=== PATIENT | male | born 1930 | race Caucasian/White ===

== ENCOUNTER 2019-03-07 09:59 | Inpatient (IN) | payer MEDICARE, BC ==
[2019-03-07] MEDS ORDERED: Fentanyl 100 MCG/2 ML VIAL ONE (10:05)
[2019-03-07] MEDS ORDERED: Acetaminophen 650 MG Suppository ONE ×2 (10:05→10:07)
[2019-03-07] MEDS ORDERED: Acetaminophen 325 MG Suppository ONE (10:07)
[2019-03-07] MEDS ORDERED: cefTRIAXone\\ROCEPHIN 2 GM VIAL ONE (10:18)
--- NOTE | 2019-03-07 10:43 | RAD ---
EXAM: Single view of the chest HISTORY: Altered mental status COMPARISON: None FINDINGS: Single view of the chest shows a normal sized cardiomediastinal silhouette. There is no raquel dence of consolidation, mass, or pleural effusion. The bones are unremarkable. IMPRESSION: No evidence of acute cardiopulmonary disease
[2019-03-07 10:44] LABS: Blood, Urine Large (Negative); Nitrite Negative (Negative); Protein, Urine (Dipstick) 100 mg/dL (Neg-Trace)
[2019-03-07 10:45] LABS: Clarity Cloudy (Clear)
[2019-03-07 10:51] LABS: Bilirubin Unable to Interpret (Negative); Glucose, Urine (Dipstick) Negative (Negative); Leukocyte Moderate (Negative)
[2019-03-07 10:52] LABS: RBC/HPF Greater than 50 HPF (0-3)
[2019-03-07 10:54] LABS: Bacteria/HPF None Seen HPF (None Seen); Renal Epithelial 0-3 HPF (None Seen)
[2019-03-07 10:55] LABS: ALT (SGPT) 254 U/L (8-55); AST (SGOT) 234 U/L (5-34); Albumin 3.3 g/dL (3.4-4.8); Alkaline Phosphatase 269 U/L (40-110); Anion Gap 18 mmol/L (10-20); BUN (Urea Nitrogen) 27 mg/dL (8.4-25.7); Bilirubin, Total 4.4 mg/dL (0.2-1.2); Calc. Creatinine Clearance 0 mL/min (70-130); Calcium 8.2 mg/dL (7.8-10.44); Carbon Dioxide 16 mmol/L (23-31); Chloride 106 mmol/L (98-107); Estimated GFR-MDRD 30; Globulin 2.6 g/dL (2.4-3.5); Glucose 88 mg/dL (83-110); Potassium 3.3 mmol/L (3.5-5.1); Protein, Total 5.9 g/dL (5.8-8.1); Sodium 137 mmol/L (136-145)
[2019-03-07 11:02] LABS: #Basophils 0.1 thou/uL (0.0-0.2); #Lymphocytes 0.4 thou/uL (1.20-3.40); #Neutrophils 3.6 thou/uL (1.40-6.50); %Basophils 1.8 % (0.0-1.0); %Eosinophils 1.1 % (0.0-10.0); %Lymphocytes 10.3 % (21.0-51.0); %Monocytes 0.9 % (0.0-10.0); Band 10 % (5-11); Hemoglobin 13.6 g/dL (14.0-18.0); Large Platelets SLIGHT; Lymphocytes 9 % (21-51); MDiff Complete? YES; Mean Corpuscular HGB CONC 32.3 g/dL (32.0-36.0); Mean Corpuscular Hemoglobin 31.1 pg (27.0-31.0); Mean Corpuscular Volume 96.2 fL (78.0-98.0); Mean Platelet Volume 8.8 fL (7.4-10.4); Metamyelocyte 3 % (0-0); Monocytes 8 % (0-10); Neutrophil 70 % (42-75); Platelet Count 92 thou/uL (130-400); Platelet Morphology Comment Appears Decreased; Red Blood Cell (RBC) Count 4.37 mill/uL (4.70-6.10); Vacuoles MODERATE; White Blood Cell (WBC) Count 4.2 thou/uL (4.8-10.8)
[2019-03-07 11:10] LABS: Lipase 4167 U/L (8-78)
[2019-03-07 11:17] LABS: CKMB 2.4 ng/mL (0-6.6)
[2019-03-07] MEDS ORDERED: Lorazepam 2 MG/ML VIAL ONE (11:30)
[2019-03-07] MEDS ORDERED: metroNIDAZOLE 500 MG/100 ML BAG ONE (11:52)
[2019-03-07] MEDS ORDERED: Morphine 4 MG/ML VIAL ONE (11:59)
[2019-03-07] MEDS ORDERED: metroNIDAZOLE 500 MG in Premix Bag 1 BAG IVPB SCH ×2 (12:15→23:59)
[2019-03-07] MEDS ORDERED: Norepinephrine 8 MG/0.9% NS 250 ML ONE (12:44)
--- NOTE | 2019-03-07 12:44 | ULT ---
US Gallbladder RUQ: 03/07/2019 11:28 AM CLINICAL HISTORY: Abdominal pain. STUDY: Limited right upper quadrant ultrasound of abdomen. COMPARISON: None. FINDINGS: Liver: Size: Normal. Echogenicity: Normal. Contour: Smooth. Mass: None. Bile ducts: No intrahepatic or extrahepatic biliary dilatation. Common bile duct measures 7 mm. Gallbladder: Normal. Pancreas: Head, body, and tail appear normal. Right kidney: No pelvicalyceal dilatation. Right kidney measuring 10.4 cm in length. There is a 1.8 c m right renal cyst. IMPRESSION: Right renal cyst
--- NOTE | 2019-03-07 14:00 | CT ---
CT Abdomen Pelvis WO Con: 03/07/2019 10:13 AM HISTORY: Sepsis and nausea/vomiting COMPARISON: 01/21/2015 TECHNIQUE: Multiple contiguous axial images were obtained and a CT of the abdomen and pelvis without IV contrast . Coronal and sagittal reformats were performed. FINDINGS: This examination is limited for the evaluation of solid organs and vascular structures due to the lac k of intravenous contrast. Lower Chest: within normal limits. Abdomen: Liver: within normal limits. Bile Ducts: Normal caliber. Gallbladder: No calcified gallstones. Normal caliber wall. Pancreas: within normal limits. Spleen: within normal limits. Adrenals: within normal limits. Kidneys: within normal limits. Pelvis: Reproductive Organs: No pelvic masses. Ureters: within normal limits. Bladder: Decompressed by Cardenas catheter. Bowel: Normal caliber. Mesenteric Lymph Nodes: No enlarged mesenteric lymph nodes. Peritoneum: No ascites or free air, no fluid collection. Vessels: Atherosclerotic calcifications in the aorta Retroperitoneum: within normal limits. Abdominal Wall: within normal limits. Bones: Degenerative changes in the spine. IMPRESSION: No evidence of acute intraabdominal or pelvic abnormality.
--- NOTE | 2019-03-07 14:25 | RAD ---
EXAM: Single view of the chest HISTORY: Central line placement COMPARISON: 03/07/2019 10:14 AM FINDINGS: Single view of the chest shows a normal sized cardiomediastinal silhouette. There is a kike tral venous catheter with its tip in superior vena cava. No pneumothorax is seen. There is no evidence of consolidation, mass, or pleural effusion. The bones are unremarkable. IMPRESSION: Status post central line placement without evidence of complication.
--- NOTE | 2019-03-07 14:31 | CT ---
CT HEAD WITHOUT CONTRAST: INDICATIONS: Mental status change. COMPARISON: None. TECHNIQUE: Axial tomograms obtained without IV enhancement. FINDINGS: Ventricles have normal size and position. There are moderate chronic ischemic white matter changes. T here is no evidence of intracranial mass or hemorrhage. No evidence of acute cortical infarct. The si nuses and mastoids appear clear. IMPRESSION: Cortical atrophy and chronic ischemic white matter change. No acute intracranial process. POS: [facility]
[2019-03-07 14:43] LABS: Lactic Acid 5.4 mmol/L (0.5-2.2)
[2019-03-07 14:48] LABS: Troponin I 0.176 ng/mL (< 0.028)
[2019-03-07 15:37] LABS: Actual Bicarbonate (HCO3a) 14.8 mEq/L (22-28); Analyzer IN Cardio ER; CO2 Tension 32.9 mmHg (35.0-45.0); Calcium, Ionized 1.08 mmol/L (1.12-1.30); Carboxyhemoglobin (COHb) 0.3 gm% (0.0-3.0); Hemoglobin (Hb) 12.4 g/dL (14.0-18.0); O2 Tension (PaO2) 106.3 mmHg (> 60.0); Potassium - ABG Lab 2.92 mmol/L (3.70-5.30); Puncture Site RB; pH, Arterial 7.27 (7.35-7.45)
[2019-03-07] MEDS ORDERED: Ondansetron PF 4 MG/2 ML Vial IVP PRN (15:48)
[2019-03-07] MEDS ORDERED: Sodium Chloride 0.9% 1,000 ML IV SCH (15:48)
[2019-03-07] MEDS ORDERED: Ondansetron ODT 4 MG TAB SL PRN (15:48)
[2019-03-07] MEDS ORDERED: Midazolam HCl 2 mg/2 ml Vial ONE (15:48)
[2019-03-07] MEDS ORDERED: Vecuronium 10 MG VIAL ONE (15:50)
[2019-03-07] MEDS ORDERED: Vasopressin 40 UNIT, Admixture Fee 1 EACH in Sodium Chloride 0.9% 100 ML IV SCH (16:00)
[2019-03-07 16:23] LABS: Actual Bicarbonate (HCO3a) 15.4 mEq/L (22-28); Base Excess (BEa) -11.7 mEq/L (-2.0 to +3.0); Calcium, Ionized 1.06 mmol/L (1.12-1.30); Carboxyhemoglobin (COHb) 1.1 gm% (0.0-3.0); Hemoglobin (Hb) 11.6 g/dL (14.0-18.0); O2 Tension (PaO2) 69.7 mmHg (> 60.0); Potassium - ABG Lab 2.73 mmol/L (3.70-5.30); pH, Arterial 7.21 (7.35-7.45)
[2019-03-07 16:24] LABS: Puncture Site RB
[2019-03-07] MEDS ORDERED: Potassium Chloride 40 MEQ in Premix Bag 1 BAG IVPB SCH (16:30)
[2019-03-07] MEDS ORDERED: CCU Electrolyte Replacement 1 EACH FS ONE (17:06)
[2019-03-07] MEDS ORDERED: Vecuronium 10 MG VIAL IVP PRN (17:06)
[2019-03-07] MEDS ORDERED: Potassium Phosphate 12 MMOL in Sodium Chloride 0.9% 250 ML 250 ML IV PRN (17:10)
[2019-03-07] MEDS ORDERED: Magnesium Oxide 400 MG TAB PO PRN ×2 (17:10)
[2019-03-07] MEDS ORDERED: Magnesium 2 GM/50 ML 2 GM in Premix Bag 1 BAG IVPB PRN (17:10)
[2019-03-07] MEDS ORDERED: DISCONTINUE PREVIOUS NARCOTIC PAIN MEDICATIONS AND BENZODIAZEPINES FS SCH (17:10)
[2019-03-07] MEDS ORDERED: CCU ELECTROLYTE REPLACEMENT PROTOCOL FS PRN (17:10)
[2019-03-07] MEDS ORDERED: Potassium Chloride 40 MEQ in Sodium Chloride 0.9% 250 ML 250 ML IVPB PRN (17:10)
[2019-03-07] MEDS ORDERED: Potassium Chloride 20 MEQ TAB PO PRN (17:10)
[2019-03-07] MEDS ORDERED: Potassium Phosphate 15 MMOL in Sodium Chloride 0.9% 250 ML 250 ML IV PRN (17:10)
[2019-03-07] MEDS ORDERED: Propofol BOLUS 1,000 MG/100 ML VIAL IV PRN (17:10)
[2019-03-07] MEDS ORDERED: PHOS-NAK 1 PKT PACK PO PRN ×2 (17:10)
[2019-03-07] MEDS ORDERED: Propofol 1,000 MG/100 ML VIAL IV PRN (17:10)
[2019-03-07] MEDS ORDERED: Morphine 2 MG/ML SYRINGE SLOW IVP PRN (17:10)
[2019-03-07] MEDS ORDERED: Fentanyl BOLUS 250 ML IVPB PRN (17:10)
[2019-03-07] MEDS ORDERED: Potassium Phosphate 9 MMOL in Sodium Chloride 0.9% 100 ML IVPB PRN (17:10)
[2019-03-07] MEDS ORDERED: Potassium Chloride 40 MEQ in Premix Bag 1 BAG IVPB PRN (17:10)
[2019-03-07] MEDS ORDERED: Ventilator Sedation Protocol 1 EACH FS SCH (17:15)
[2019-03-07] MEDS: Sodium Bicarbonate 140 MEQ in Dextrose 5% in Water 1,000 ML IV SCH (17:34)
[2019-03-07 17:41] LABS: Troponin I 0.267 ng/mL (< 0.028)
[2019-03-07] MEDS: fentaNYL Citrate/PF 2,000 MCG in Sodium Chloride 0.9% 60 ML IV SCH (17:43)
[2019-03-07] MEDS: Hydrocortisone Sod Succ/PF 100 mg/2 ml Vial IVP SCH (19:17)
[2019-03-07] MEDS: metroNIDAZOLE 500 MG in Premix Bag 1 BAG IVPB SCH (19:18)
[2019-03-07] MEDS ORDERED: Cefepime 2 GM in Sodium Chloride 0.9% 100 ML IVPB SCH ×2 (21:00)
[2019-03-07] MEDS: Norepinephrine 8 MG/0.9% NS 250 ML IVPB SCH (21:12)
[2019-03-07 21:28] LABS: Actual Bicarbonate (HCO3a) 14.1 mEq/L (22-28); Base Excess (BEa) -12.6 mEq/L (-2.0 to +3.0); CO2 Tension 34.9 mmHg (35.0-45.0); Calcium, Ionized 0.98 mmol/L (1.12-1.30); Carboxyhemoglobin (COHb) 1.2 gm% (0.0-3.0); Hemoglobin (Hb) 12.1 g/dL (14.0-18.0); O2 Tension (PaO2) 63.4 mmHg (> 60.0); Potassium - ABG Lab 2.87 mmol/L (3.70-5.30)
--- NOTE | 2019-03-07 21:58 | HP ---
CHIEF COMPLAINT: Abdominal pain and vomiting. HISTORY OF PRESENT ILLNESS: This patient is an 88-year-old male, who presented to the emergency department. The patient does not have hearing aids or glasses. Has a very difficult time communicating at the moment. According to the patient's daughter, she was in good health yesterday, apparently has some chronic recurring abdominal pain. He was well enough to change the tire on her car yesterday morning. Subsequently, he reported some abdominal pain, which is not uncommon for him. He took a nap and did not get any better, took his usual medications today. Apparently, he was significantly worse, had some vomiting and was apparently altered in some way per EMS. The patient had significant vomiting on the arrival and was altered at that time. REVIEW OF SYSTEMS: Not obtainable given the patient's current status and difficulty communicating. PAST MEDICAL HISTORY: Gastroesophageal reflux, duodenal ulcers, hypertension, and history of a toxic multinodular goiter. SURGICAL HISTORY: Cataractectomy and colonoscopy. FAMILY HISTORY: Not currently obtainable. SOCIAL HISTORY: Has a history of smoking, but nothing recent. No evidence of alcohol or drugs. He is . His and daughter indicate that they believe he would want aggressive treatment at this juncture, so he will be made full code and his is his surrogate decision maker. ALLERGIES: NONE. CURRENT MEDICATIONS: 1. Prilosec 40 mg daily. 2. Tylenol No. 3 q.6 hours p.r.n. 3. Amlodipine 5 mg daily. 4. Losartan 50 mg daily. PHYSICAL EXAMINATION: VITAL SIGNS: Initially, rectal temperature was 104, respirations 32, pulse 158, BP is 129/97, O2 saturation was 99% on a non-rebreather. Ultimately, blood pressure did decline as low as 73/50, requiring pressors in the emergency department. GENERAL APPEARANCE: Currently, the patient is awake. He is not terribly interactive. He did at one point say that he can hear us, but he cannot understand us, but otherwise was not really following commands or verbally interactive. HEART: Tachycardic without murmurs. LUNGS: Clear bilaterally with no wheezes or rales. ABDOMEN: Tender to palpation diffusely, possibly slightly more on the right upper quadrant with some mild voluntary guarding. No masses, rebound, or hepatosplenomegaly is noted. EXTREMITIES: No cyanosis, clubbing, or edema. HEENT: Pupils are reactive. He has no acute lesions. NEUROLOGIC: Again, the patient is not interactive. He does move his extremities modestly spontaneously. LABORATORY DATA: White count is 4.2, hemoglobin 13.6, platelets 92. Sodium 137, potassium 3.3, chloride 106, CO2 of 16, BUN 27, creatinine is 2.13, glucose 88, lactic acid 9.1, calcium 8.2, total bilirubin 4.4, AST 234, ALT 254, alkaline phosphatase 269. Troponin 0.052. Albumin 3.3. Urinalysis is cloudy, orange in color, positive protein, ketones are present, large blood, 2+ protein, elevated urobilinogen, moderate leukocyte esterase with greater than 50 red cells, 7 to 10 white cells. Flu screen is negative. CT abdomen and pelvis negative for acute findings. CT brain, chronic degenerative changes. Chest x-ray negative. Abdominal ultrasound shows a benign renal cyst. IMPRESSION AND PLAN: 1. Acute hypoxic respiratory failure. ABG was obtained prior to transport from the ER, reviewed, is definitely acidotic with pH 7.2. Dr. Roper and I spoke with the patient's and daughter and they are amenable at this point to intubation. 2. Acute septic shock. Source is suspected to be possible cholangitis, although imaging has been negative. All other workup so far has been negative as well. He does have elevated liver enzymes with a cholestatic picture, covering with cefepime, vancomycin, and Flagyl. Pressors as needed. 3. Possible cholangitis, on antibiotic coverage and consult GI for possible ERCP once he is appropriately stable. 4. History of hypertension, obviously holding off on any medications now. 5. Hypokalemia. We will need to closely monitor potassium levels after intubation and his acidosis is resolved. 6. Acute on chronic kidney injury. The patient appears to have a baseline GFR around 40, he is now at 30, clearly related to the septic shock and likely some acute tubular necrosis. We will continue to monitor after fluid hydration. 7. Elevated troponins, likely due to [id number] myocardial infarction type 2 from demand ischemia related to the septic shock. 8. Possible pancreatitis due to the cholestatic picture, possible ascending cholangitis versus a stone or obstruction, which may have already passed and not visible on imaging again. GI consulted. Job ID: [id number]
[2019-03-07] MEDS ORDERED: Vancomycin HCl 1 GM in Premix Bag 1 BAG IVPB SCH (22:00)
[2019-03-07] MEDS: Albumin 25% 25 GM/100 ML BOT IVPB SCH (22:41)
--- NOTE | 2019-03-07 23:40 | CON ---
DATE OF CONSULTATION: 03/07/2019 This is a 1-hour critical care time not including time spent performing 2 procedures, see separate operative note. REASON FOR CONSULTATION: Septic shock. HISTORY OF PRESENT ILLNESS: This patient is an 88-year-old male who apparently was doing well up until yesterday. He has had some chronic abdominal pain, but today it worsens significantly. He presented to the ER with altered mental status and really could not give much in the way of history. What I have obtained from talking with the family and by reading the emergency provider notes, when he was in the ER, he was noted to be hypotensive and had a fever up to 104.7. His bilirubin was very rigid to exam. He underwent a CT of the abdomen and pelvis, which was nondiagnostic. He had a central line placed for the purpose of giving vasopressors. I was called by the emergency room physician when the patient was not responding with vasopressors and I asked if the patient was acidotic. At that time, they had not done a blood gas. By the time the patient got to the ICU a short time later, the blood gas had been drawn, the pH was about 7.27, pCO2 of 37. PAST MEDICAL HISTORY: 1. 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 2. Hypertension. 3. Gastroesophageal reflux. PAST SURGICAL HISTORY: 1. Status post colonoscopy. 2. Diverticulitis post surgery. 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 Smoked 20 years, 1 to 2 packs a day, quit 40 years ago. Does not use IV drugs. Has not had any type of blood transfusion in the past. ALLERGIES: NONE. MEDICATIONS: Prior to admission; 1. Prilosec. 2. Some type of Codeine preparation. 3. Amlodipine. 4. Losartan. REVIEW OF SYSTEMS: Cannot be obtained. PHYSICAL EXAMINATION: VITAL SIGNS: Temperature was last measured 100.5, pulse 113, blood pressure now 130/55, on Levophed drip, and O2 saturation 95% on mechanical ventilation. The patient appears toxic. HEENT: Unremarkable. NECK: No adenopathy or JVD. LUNGS: Clear anteriorly. CARDIOVASCULAR: S1 and S2, tachycardic. ABDOMEN: Tender to superficial palpation particularly in the right upper quadrant. EXTREMITIES: No clubbing, cyanosis, or edema. LABORATORY DATA: White blood cell count 4.2, hematocrit 42.0, and platelet count 92, with 70% neutrophils, 10% bands. ABG; pH of 7.21, pCO2 of 39, pO2 of 69, that is on SIMV, rate 20, tidal volume of 500, PEEP 5, pressure support 10, FiO2 40%, that is after intubation. Sodium 137, potassium 3.3, chloride 106, CO2 of 16, BUN 27, and creatinine 2.1. Lactate was initially 9.1, now 5.4, AST 234, ALT 254, alkaline phosphatase 269, total bilirubin 4.4, troponin 0.76, lipase 4167, albumin 3.3. IMAGING STUDIES: A chest x-ray obtained in the emergency room demonstrates clear lung barry. Tortuous aorta. Right IJ line noted in good position. Abdominal ultrasound showed a normal gallbladder. Common bile duct measures 7 mm. ASSESSMENT: 1. This patient is presenting with septic shock from presumed abdominal source based on exam. Imaging studies are negative. The laboratory data suggest pancreatitis and/or ascending cholangitis. He has significant transaminitis. Also in the differential, would be ischemic bowel. 2. Severe metabolic acidosis. 3. Acute respiratory failure secondary to the acidosis. PLAN: 1. The patient has been placed on vasopressors for the purpose of improving his blood pressure. A CVP is about 14, so he has been adequately fluid resuscitated. I have placed an arterial line so that we can monitor his blood pressure aggressively as well as put him on a machine to monitor his cardiac output. 2. GI has been consulted as the patient may need ERCP. 3. Empiric antibiotics. 4. GI prophylaxis with Pepcid. 5. Start bicarbonate drip. Job ID: [id number]
[2019-03-08] MEDS: metroNIDAZOLE 500 MG in Premix Bag 1 BAG IVPB SCH ×5 (00:38→23:43)
[2019-03-08] MEDS: Hydrocortisone Sod Succ/PF 100 mg/2 ml Vial IVP SCH ×5 (00:38→23:43)
[2019-03-08] MEDS: Norepinephrine 8 MG/0.9% NS 250 ML IVPB SCH ×4 (00:41→20:19)
[2019-03-08] MEDS: Lorazepam 2 MG/ML VIAL SLOW IVP PRN ×5 (01:09→16:39)
[2019-03-08] MEDS: Sodium Bicarbonate 140 MEQ in Dextrose 5% in Water 1,000 ML IV SCH ×3 (01:25→19:53)
--- NOTE | 2019-03-08 01:47 | CON ---
DATE OF CONSULTATION: SERVICE: Renal Medicine. HISTORY OF PRESENT ILLNESS: Mr. Jackson is an 88-year-old white male, who was admitted for abdominal pain. Initial imaging-CT of the abdomen and pelvis not showed any acute abnormality. Kidneys were said to be normal. The patient has been evaluated by the GI and the feeling is that he may have ischemic bowel. His blood pressure has been labile. He has been up and down and is currently on pressor support. He is currently undergoing optimization of his hemodynamics. We were consulted for the acute kidney injury on top of his chronic renal failure. REVIEW OF SYSTEMS: Chronic intermittent abdominal pain. No nausea. No vomiting. Appetite decreased. Energy level has decreased. No headache. No chest pain. No shortness of breath. No syncopal episode. No productive cough. No gross hematuria. No dysuria. No urinary frequency. No hematochezia. No melena. HOME MEDICATIONS: Included the following, 1. Omeprazole 20 mg daily. 2. Losartan 50 mg daily. 3. Amlodipine 5 mg once a day. 4. Tylenol with Codeine. CURRENT HOSPITAL MEDICATIONS: Include, 1. Vasopressin drip. 2. Thiamine 200 mg q.12 hours p.r.n. 3. Potassium currently on isotonic bicarbonate. 4. Cefepime 2 g IV daily. PAST MEDICAL HISTORY: 1. 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 2. Longstanding history of hypertension. PAST SURGICAL HISTORY: Includes status post colonoscopy with findings of diverticulitis. SOCIAL HISTORY: The patient lives in [place]. , two children. Smoked for 20 years 1 to 2 packs a day, quit 40 years ago. Education, high school. No drug abuse. Denies any blood transfusion. Active lifestyle. 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 FAMILY HISTORY: No family history of ESRD. ALLERGIES: NONE. TRAUMA: None. IMMUNIZATIONS: Up-to-date. HOSPITALIZATIONS: Please see past medical history. PHYSICAL EXAMINATION: VITAL SIGNS: Blood pressure is 150/70, heart rate 70. GENERAL: The patient is sedated, intubated, on ventilator support. SKIN: Adequate turgor. HEENT: He has pinkish conjunctivae. Anicteric sclerae. No neck mass. No carotid bruits. No JVD. CHEST: No deformities. LUNGS: Clear breath sounds. HEART: Normal sinus rhythm. No murmur. No gallops. No rubs. ABDOMEN: Globular, soft, nontender. No masses. EXTREMITIES: No edema. No deformities. LABORATORY DATA: Laboratories of March 07, 2019, sodium 137, potassium 3.3, chloride 106, carbon dioxide 16, BUN 27, creatinine 2.13, glucose 88, AST 234, ALT 254, alkaline phosphatase 269. Lactic acid 5.4. Troponin I 0.267. Lipase 4167. ASSESSMENT AND PLAN: 1. Elevated lipase-possibility of acute pancreatitis remains. Imaging was essentially negative. GI has been consulted. I discussed the case with Dr. Eldridge and he feels that better differential will be ischemic bowel with this patient. For the moment, management is supportive. Continue to optimize hemodynamics. 2. Acute kidney injury. This is most likely a superimposed prerenal azotemia. Aggressive IV hydration is being given with this patient. In addition, I have decided to start him on albumin infusion 25 g IV q.6. There is no indication for any dialytic intervention. 3. Case discussed at length with the daughter and the . His overall prognosis remains guarded. Job ID: [id number]
[2019-03-08 02:51] LABS: ALV-art Gradient 178.175 (0-20); Puncture Site ALINE; pH, Arterial 7.22 (7.35-7.45)
[2019-03-08 03:19] LABS: Creatinine, Urine 257.98 mg/dL (63-166)
[2019-03-08] MEDS: Albumin 25% 25 GM/100 ML BOT IVPB SCH ×4 (03:34→20:31)
[2019-03-08 04:40] LABS: Band 25 % (5-11); Hemoglobin 11.2 g/dL (14.0-18.0); Lymphocytes 3 % (21-51); MDiff Complete? YES; Mean Corpuscular HGB CONC 32.4 g/dL (32.0-36.0); Mean Corpuscular Hemoglobin 30.9 pg (27.0-31.0); Mean Corpuscular Volume 95.2 fL (78.0-98.0); Mean Platelet Volume 11.3 fL (7.4-10.4); Metamyelocyte 9 % (0-0); Monocytes 1 % (0-10); Myelocyte 1 % (0-0); Neutrophil 61 % (42-75); Platelet Count 56 thou/uL (130-400); Platelet Morphology Comment Appears Decreased; RBC Distribution Width 12.4 % (11.5-14.5); Red Blood Cell (RBC) Count 3.63 mill/uL (4.70-6.10); White Blood Cell (WBC) Count 19.2 thou/uL (4.8-10.8)
[2019-03-08 04:47] LABS: ALT (SGPT) 235 U/L (8-55); AST (SGOT) 271 U/L (5-34); Albumin 3.3 g/dL (3.4-4.8); Alkaline Phosphatase 116 U/L (40-110); Anion Gap 22 mmol/L (10-20); BUN (Urea Nitrogen) 38 mg/dL (8.4-25.7); Bilirubin, Total 4.2 mg/dL (0.2-1.2); Calc. Creatinine Clearance 18 mL/min (70-130); Calcium 6.7 mg/dL (7.8-10.44); Carbon Dioxide 14 mmol/L (23-31); Chloride 108 mmol/L (98-107); Estimated GFR-MDRD 18; Globulin 1.9 g/dL (2.4-3.5); Glucose 173 mg/dL (83-110); Phosphorus 5.1 mg/dL (2.3-4.7); Potassium 3.6 mmol/L (3.5-5.1); Protein, Total 5.2 g/dL (5.8-8.1); Sodium 140 mmol/L (136-145)
[2019-03-08 05:18] VITALS: BMI 26.6
[2019-03-08 07:32] LABS: Actual Bicarbonate (HCO3a) 13.2 mEq/L (22-28); Base Excess (BEa) -12.5 mEq/L (-2.0 to +3.0); CO2 Tension 29.9 mmHg (35.0-45.0); Carboxyhemoglobin (COHb) 0.2 gm% (0.0-3.0); Hemoglobin (Hb) 10.9 g/dL (14.0-18.0); O2 Tension (PaO2) 81.7 mmHg (> 60.0); pH, Arterial 7.26 (7.35-7.45)
[2019-03-08 07:33] LABS: ALV-art Gradient 166.125 (0-20); Analyzer IN Cardio OR; Calcium, Ionized 0.91 mmol/L (1.12-1.30); Potassium - ABG Lab 3.39 mmol/L (3.70-5.30); Puncture Site ALINE
--- NOTE | 2019-03-08 08:22 | PRG ---
DATE OF SERVICE: 03/08/2019 This is 35 minutes critical care time. SUBJECTIVE: The patient remains intubated on mechanical ventilation. He is heavily sedated and cannot follow commands. OBJECTIVE: VITAL SIGNS: His temperature 99.1 with a T-max of 99.1, pulse 104, blood pressure 105/58 via arterial line, currently receiving a Levophed drip at 25 mcg/minute and a vasopressin drip at 0.04 units/hour. His total intake has been 3247, output 328, all that just about gastric drainage. HEENT: Unremarkable, except for the endotracheal tube and orogastric tube in place. NECK: No adenopathy or JVD. LUNGS: Clear anteriorly. CARDIOVASCULAR: S1, S2. Regular. ABDOMEN: Soft. No tenderness to deep palpation. EXTREMITIES: No clubbing or cyanosis. He has mottled feet. LABORATORY DATA: Sodium 140, potassium 3.6, chloride 108, CO2 of 14, BUN 38, creatinine 3.3, glucose 173, calcium 6.7, AST 271, ALT 235, total bilirubin 4.2, magnesium 1.7. PH of 7.26, pCO2 of 30, pO2 of 82, that is on SIMV rate 28, tidal volume 500, PEEP 5, pressure support 10, FiO2 40%. White blood cell count 19.2, hematocrit 34.5, and platelet count 56. Chest x-ray is fairly clear. ASSESSMENT: 1. Septic shock, most likely from ascending cholangitis. 2. Acute respiratory failure, requiring mechanical ventilation. 3. Acute oliguric renal failure. 4. Thrombocytopenia. 5. Transaminitis. PLAN: 1. This patient remains critically ill. He is not weanable from mechanical ventilation, vasopressors, or other support. I think he most likely will need acute dialysis in the upcoming days. We need to continue broad-spectrum IV antibiotics. Initial cultures have already grown out gram-negative rods, which should be consistent with a gastrointestinal source. The patient was seen by GI yesterday. The consult has not been posted on the chart. 2. The patient will continue on vitamin C, thiamine, and IV hydrocortisone. I will update the family when they arrive. 3. Hold Lovenox given the development of thrombocytopenia. Job ID: [id number]
[2019-03-08] MEDS: Pantoprazole 40 MG VIAL IVP SCH (08:24)
--- NOTE | 2019-03-08 08:37 | CON ---
DATE OF CONSULTATION: REASON FOR CONSULTATION: Abdominal pain, nausea, elevated serum lipase and transaminases. HISTORY OF PRESENT ILLNESS: Mr. Trev Jackson is an 88-year-old male, who was brought by the family to the ER this morning. The patient has been steadily getting worse. He was awake and alert in the ER, but he was hypotensive. He is on vasopressors. After arrival in the ICU, he became somewhat tachypneic and was seen by Dr. Vaibhav Roper. He has to be intubated and he is on the ventilator. He is under sedation. Most of the history was obtained talking to the patient's daughter and her mother. The patient does see Dr. Calvin Moreno, his primary care doctor. The patient is known to have hypertension from before. He has also history of diverticular disease and also stable chronic kidney disease. The patient was doing well until yesterday morning when he started having severe abdominal pain. The pain was over the upper abdomen and was severe as per the patient's . He has dry heaving, but no vomiting. He had no diarrhea. No hematochezia. No history of any fever or chills. No urinary symptoms. The patient was brought to the ER and was seen by Dr. Young. He was found to have elevated lipase of more than 4000. His transaminases were elevated. His abdominal sonogram shows no gallstones. The CBD is normal at 7 mm. He has had previous abdominal sonogram and abdominal CAT scan in 2015. In 2015, abdominal sonogram showed no gallstones. Again the CAT scan was basically unremarkable at the time in 2015. He had a CAT scan done today, which is a noncontrast study, which limits evaluation of vascular structures. CAT scan of the abdomen shows no pathology. The patient also found to have acidosis with lactic acid of 9 and he was hypotensive. He was given IV bolus and is on IV vasopressors. He was transferred to ICU. Subsequently he became restless and became tachypneic and was found to be intubated. Going over the medical history, he was hospitalized here in 2015 with abdominal pain. He has abdominal CAT scan, which revealed possibly an apple-core lesion in the sigmoid colon. He underwent a colonoscopy by Dr. Nathaniel Vargas in 2015 and was negative except for diffuse colonic diverticular disease. An upper endoscopy was negative. He was seen by Dr. Douglas Aguilar because of elevated BUN of 37 and creatinine was 1.62. It was felt that he has acute on chronic kidney disease. He was given IV fluids and BUN came to 27 from 37. However, his creatinine remained high at 1.63. He never saw Dr. Aguilar again before. He never admitted to see Dr. Aguilar as an outpatient subsequent to that discharge. No other relevant history. ALLERGIES: NONE. SOCIAL HISTORY: He is . He quit smoking many years ago. He drinks alcohol socially. PAST SURGICAL HISTORY: No surgeries. MEDICATION LIST: Include; 1. Lisinopril/hydrochlorothiazide. 2. Acetaminophen with codeine. FAMILY HISTORY: No family history of colon malignancy. No stroke. No heart disease. REVIEW OF SYSTEMS: Not able to obtain as he is on the ventilator. PHYSICAL EXAMINATION: GENERAL: He is on the ventilator, sedated. VITAL SIGNS: He is tachycardic with pulse rate of 110. Blood pressure with vasopressor and Levophed runs around 140 systolic to 150 systolic, diastolic runs around 90. HEENT: Conjunctivae clear. NECK: Supple. No adenitis or thyromegaly noted. CARDIOVASCULAR: First and second heart sounds heard. LUNGS: Clear to auscultation. ABDOMEN: Soft and nondistended. Abdomen is actually a very benign exam. Patient appears nontender. No organomegaly. No masses. EXTREMITIES: Reveal no edema. LABORATORY DATA: From today CBC; WBC 4200, hemoglobin 13.6, hematocrit 42, MCV 96.2, platelet count is 92,000. Differential count; polymorphs 70, bandemia 10%, lymphocytes 9. Chemistry panel shows normal lytes except for potassium 3.3. bicarb 16, lactic acid 9.7, came down to 5.4, BUN is 27, creatinine has gone over 2.13, calcium 8.2, bilirubin 4.4, AST 234, ALT 254, alkaline phosphatase 269, lipase is 4167. Troponin is high at 0.27. Abdominal sonogram shows a CBD of 7 mm. No dilation of bile ducts. No gallstones. Abdominal CAT scan noncontrast study shows no other pathology. However, the vascular structure is not difficult to evaluate. CLINICAL IMPRESSION: An 88-year-old male with; 1. Acute abdominal pain with some nausea. He has evidence of kidney injury with creatinine going up to 2.13. He is also not passing any urine and also hypotensive. He is on vasopressors with Levophed XR. 2. Acute pancreatitis. It is unclear he does not drink alcohol and they found gallstones. Normal LFTs most likely from pancreatitis with possibly compression of some bile duct from pancreatic edema. 3. His physical findings and lab data does not support diagnosis of cholangitis as he has had no gallstones and CBD is normal in caliber. 4. Acute on chronic injury, worsening creatinine to 2.13. 5. Decreasing urine output and needs evaluation. 6. Hypertension. RECOMMENDATIONS: 1. Nephrology consult. 2. Ventilator support. 3. If he does not have enough output, I did talk to Dr. Douglas Aguilar, who has seen the patient before. Dr. Aguilar will see the patient later on today. 4. Serial labs. Further recommendations depending upon the hospital course. There is a strong possibility that he could have some ischemic bowel disease, which could explain her decrease in urinary output, hypotension, etc. Job ID: [id number]
--- NOTE | 2019-03-08 08:44 | RAD ---
EXAM: Single view of the chest HISTORY: Pneumonia COMPARISON: 03/07/2019 FINDINGS: Single view of the chest shows a normal sized cardiomediastinal silhouette. An endotrachea l tube is seen with its tip between the clavicles. An NG tube is seen in the stomach. The central venous catheter is unchanged in position. Chronic interstitial lung markings are present. There is n o evidence of consolidation, mass, or pleural effusion. The bones are unremarkable. IMPRESSION: Appropriate position of lines and tubes
[2019-03-08] MEDS ORDERED: Enoxaparin Sodium 30 MG/0.3 ML SYRINGE SC SCH (09:00)
--- NOTE | 2019-03-08 09:22 | PRG ---
DATE OF SERVICE: 03/08/2019 SERVICE: Renal Medicine. SUBJECTIVE: Mr. Jackson remains intubated and sedated. No acute events last night. The patient was seen for his acute kidney injury on top of his chronic renal failure. He was hemodynamically unstable. Albumin infusion has been given and isotonic bicarbonate has been started and is on maintenance IV fluid. However, renal function continues to worsen. My feeling is that he may have developed an acute tubular necrosis. He also has elevated lipase suggesting he may have underlying pancreatitis. Case was discussed with Dr. Eldridge and he may also have an intestinal bowel ischemia. OBJECTIVE: VITAL SIGNS: Blood pressure is 96/66, heart rate is 106, respiratory rate 18, temperature 98.8. GENERAL: The patient is sedated intubated on ventilator support. SKIN: Adequate turgor. HEENT: He has pinkish conjunctivae. Anicteric sclerae. No neck mass. No carotid bruits. No JVD. CHEST: No deformities. LUNGS: Decreased breath sounds. HEART: Normal sinus rhythm. No murmur. No gallops. No rubs. ABDOMEN: Globular, soft, nontender. No masses. EXTREMITIES: No edema. No deformities. MEDICATIONS: Medications of March 08, 2019, was reviewed. LABORATORY DATA: Laboratories of March 08, 2019, white count 12.2, hemoglobin 11.2. Sodium 140, potassium 3.6, chloride 108, carbon dioxide 14, BUN 38, creatinine 3.31, phosphorus 5.1, AST 271, ALT 235. Albumin is 3.3. Chest x-ray, March 08, 2019, shows no evidence of consolidation, mass, or pleural effusion. No overt CHF. ASSESSMENT AND PLAN: 1. Acute kidney injury on top of his chronic renal failure. Initially, he felt this could simply be a superimposed hemodynamically-mediated dysfunction. He has been receiving albumin infusion as well as crystalloids-isotonic bicarbonate. No improvement with renal function. Urine output is also decreased. Consideration for the possibility of a superimposed acute tubular necrosis remains. Continue supportive care. Continue to optimize hemodynamics. We will extend albumin infusion to 25 g IV q.6 for another 4 doses. 2. Elevated lipase/possibility of pancreatitis remains. Although GI feels there may be a component of intestinal ischemia. 3. Hypotension, currently on pressor support. 4. Overall prognosis remains guarded with this patient. Job ID: [id number]
[2019-03-08] MEDS ORDERED: Vancomycin HCl 1 GM in Premix Bag 1 BAG IVPB SCH ×2 (10:00→10:15)
--- NOTE | 2019-03-08 11:09 | OP ---
DATE OF PROCEDURE: 03/07/2019 PROCEDURE PERFORMED: Endotracheal intubation. PREOPERATIVE DIAGNOSES: Metabolic acidosis, respiratory failure. POSTOPERATIVE DIAGNOSES: Metabolic acidosis, respiratory failure. ANESTHESIA: Versed 2 mg IV for conscious sedation. INDICATIONS FOR PROCEDURE: Informed consent was obtained from the patient's family verbally. The patient was intubated orally with a 7.5 endotracheal tube with GlideScope visualization on the first attempt without difficulty. Tube placement was confirmed by auscultation. Job ID: [id number]
--- NOTE | 2019-03-08 11:09 | OP ---
DATE OF PROCEDURE: 03/07/2019 PROCEDURE PERFORMED: Arterial line placement. PREOPERATIVE DIAGNOSIS: Need for continuous arterial blood pressure monitoring. POSTOPERATIVE DIAGNOSIS: Successful left radial arterial line placement. ANESTHESIA: None. DESCRIPTION OF PROCEDURE: I first tried the left femoral artery. It was easy to cannulate the vessel, but the wire could only be passed about 8 cm and I could not get the IV catheter to return arterial blood once the wire was removed. Therefore, that site was aborted and I used the left radial site. This is also very difficult due to the small caliber diameter of the vessel. Ultrasound was used to cannulate the vessel by the modified Seldinger technique. Arterial line was placed and arterial blood was returned. Job ID: [id number]
[2019-03-08] MEDS: fentaNYL Citrate/PF 2,000 MCG in Sodium Chloride 0.9% 60 ML IV SCH (12:34)
[2019-03-08 13:36] LABS: Base Excess (BEa) -7.5 mEq/L (-2.0 to +3.0); CO2 Tension 31.4 mmHg (35.0-45.0); Calcium, Ionized 0.87 mmol/L (1.12-1.30); Carboxyhemoglobin (COHb) 0.4 gm% (0.0-3.0); Hemoglobin (Hb) 10.9 g/dL (14.0-18.0); O2 Tension (PaO2) 61.6 mmHg (> 60.0); Potassium - ABG Lab 3.47 mmol/L (3.70-5.30); Puncture Site ALINE; pH, Arterial 7.35 (7.35-7.45)
[2019-03-08 14:17] LABS: ALT (SGPT) 289 U/L (8-55); AST (SGOT) 319 U/L (5-34); Albumin 3.2 g/dL (3.4-4.8); Alkaline Phosphatase 94 U/L (40-110); Bilirubin, Direct 3.2 mg/dL (0.1-0.3); Protein, Total 4.6 g/dL (5.8-8.1)
--- NOTE | 2019-03-08 14:27 | PRG ---
DATE OF SERVICE: 03/08/2019 SUBJECTIVE: Mr. Jackson remains intubated. He became more acidotic overnight. He is on a bicarb drip. He is post vasopressin 0.04 and Levophed at 25 mcg. He is not making any urine. OBJECTIVE: VITAL SIGNS: Temperature 99.1 presently, pulse 108 to 110, blood pressure 140/92, bladder temp 99.1. GENERAL: He is intubated, sedated, nonresponsive, mildly icteric. HEENT: Oropharynx, no lesions. NECK: Supple. ABDOMEN: Soft, slightly protuberant. It is not distended. No bowel sounds. No palpable hepatosplenomegaly. EXTREMITIES: No clubbing, cyanosis, or edema. LABORATORY DATA: White count today has gone from 4 to 19. Hemoglobin is 11.2 from 13.6, likely from hydration. Platelet count 56,000. PH was 7.26 at 06:40 this morning, 7.21 yesterday at 1600. BUN and creatinine 38 and 3.31 from 2.13. Electrolytes normal. Phosphorus 5.1, calcium 6.7. Bilirubin 4.2, yesterday was 4.4. AST and ALT 271, 235, 234, and 254 yesterday. Alkaline phosphatase 116, down from 269. Lipase was not checked today, it was 4167 yesterday. ASSESSMENT: 1. Pancreatitis, likely biliary in light of no stones and no dilated duct and cannot confirm that. He does have a history in the past of intermittent right upper quadrant pain per the patient's daughter, has not started any new medications recently in the outpatient setting, obviously could be septic from other source and or be having some mesenteric ischemia. However, he has stabilized and actually the pH the nurses check was 7.35. I suspect if he had a large amount of ischemic bowel he would just steadily decline. 2. Elevated liver enzymes, could be related to cholestasis from sepsis, picture does look like cholangitis except for the fact he has no gallstones nor dilated duct, but he has E. coli in the blood and his clinical course has been ascertained. The family again notes intermittent history of right upper quadrant pain at times after eating. 3. Sepsis. 4. Acute renal failure. RECOMMENDATIONS: The patient was in very good health before this, very active, changing tires in his car, taking care of his family and driving still and without any signs or symptoms of dementia. He is septic now. This could be from cholangitis. It could be from another abdominal catastrophe. It does not appear that he has flu or acute hepatitis. He has E. coli in his blood. Recommendations, I have offered the family an ERCP today for possible ascending cholangitis with that he may not tolerate sedation and it may worsen his pancreatitis. We also may not be able to get into the common bile duct due to the degree of ampulla, periampullary edema or duodenal edema. He has been sick for over 24 hours now here in the hospital. At this time, there is no clear evidence he has cholangitis based on his imaging studies, but the clinical story definitely sounds like that. Again, the family at this time decided they do not want to move on with more invasive procedures as they feel he would not have wanted heroic measures. They have agreed to have labs rechecked. If things are stabilized, they will reevaluate. The nurse is going to contact me if they change their mind. Job ID: [id number]
[2019-03-08] MEDS ORDERED: Cefepime 2 GM in Sodium Chloride 0.9% 100 ML IVPB SCH (21:00)
[2019-03-08] MEDS ORDERED: Magnesium 2 GM/50 ML 2 GM in Premix Bag 1 BAG IVPB SCH (22:00)
[2019-03-08] MEDS ORDERED: Digoxin 0.5 MG/2 ML AMP SLOW IVP SCH (22:00)
[2019-03-08] MEDS: Amiodarone 450 MG, Admixture Fee 1 EACH in Dextrose 5% in Water 250 ML IVPB SCH (22:17)
--- NOTE | 2019-03-08 22:21 | PDOC.HOSPP ---
- Subjective Encounter Date: 03/08/19 Encounter Time: 15:30 non-verbal - Objective Vital Signs & Weight: Vital Signs (12 hours) Temp Pulse Resp BP Pulse Ox 03/08/19 22:06 145 H 03/08/19 20:00 28 H 03/08/19 18:42 137 H 03/08/19 18:41 135 H 28 H 98 03/08/19 18:00 28 H 03/08/19 17:07 28 H 03/08/19 16:00 28 H 03/08/19 15:00 99.3 F 03/08/19 14:02 105 H 120/64 03/08/19 14:00 104 H 28 H 91 L 03/08/19 12:00 28 H 03/08/19 11:00 99.1 F Weight Admit Weight 186 lb Weight 186 lb 1.122 oz Most Recent Monitor Data Heart Rate from ECG 137 NIBP 102/66 NIBP BP-Mean 78 Respiration from ECG 16 SpO2 85 I&O: 03/07/19 03/08/19 03/09/19 06:59 06:59 06:59 Intake Total 3247.5 2478.1 Output Total 328 15 Balance 2919.5 2463.1 Result Diagrams: 03/09/19 04:50 03/09/19 04:50 Hospitalist ROS - Medication Medications: Active Medications Generic Name Dose Route Start Last Admin Trade Name Freq PRN Reason Stop Dose Admin Albumin Human 25 gm 03/08/19 21:00 03/08/19 20:31 Albumin 25% IVPB 03/09/19 15:01 25 gm Q6H [place] Administration Albuterol/Ipratropium 3 ml 03/07/19 19:00 03/08/19 18:41 Duoneb NEB 3 ml [id number] [place] Administration Digoxin 0.25 mg 03/08/19 22:00 03/08/19 22:06 Lanoxin SLOW IVP 03/08/19 23:59 0.25 mg NOW [place] Administration Hydrocortisone Sodium Succinate 50 mg 03/07/19 18:00 03/08/19 17:03 Solu-Cortef IVP 03/14/19 18:01 50 mg Q6HR [place] Administration Vasopressin 40 unit/ 102 mls @ 0 mls/hr 03/07/19 16:00 03/08/19 22:17 Miscellaneous Medication 1 IV 102 mls each/ Sodium Chloride INF [place] Administration Protocol As Directed Metronidazole 500 mg/ Device 100 mls @ 100 mls/hr 03/07/19 18:00 03/08/19 17: 06 IVPB 100 mls Q6HR [place] Administration Ascorbic Acid 1,500 mg/ Sodium 53 mls @ 100 mls/hr 03/07/19 18:00 03/08/19 17 :05 Chloride IVPB 03/11/19 18:01 53 mls Q6HR [place] Administration Thiamine HCl 200 mg/ Sodium 52 mls @ 100 mls/hr 03/07/19 21:00 03/08/19 20:19 Chloride IVPB 03/11/19 21:01 52 mls Q12HR [place] Administration Magnesium Sulfate 1 gm/ Sodium 102 mls @ 102 mls/hr 03/07/19 17:10 03/08/19 08:24 Chloride IV 102 mls PRN PRN Administration MAG LEVEL 1.4 - 2.0 Fentanyl Citrate 2,000 mcg/ 100 mls @ 0 mls/hr 03/07/19 17:10 03/08/19 12:34 Sodium Chloride IV 04/06/19 17:10 100 mls INF [place] Administration Protocol Per Protocol Cefepime HCl 2 gm/ Sodium 100 mls @ 200 mls/hr 03/08/19 21:00 03/08/19 20:19 Chloride IVPB 100 mls 2100 [place] Administration Sodium Bicarbonate 140 meq/ 1,140 mls @ 100 mls/hr 03/08/19 07:28 03/08/19 19 :53 Dextrose/Water IV 1,140 mls .[id number] [place] Administration Norepinephrine Bitartrate 250 mls @ 0 mls/hr 03/08/19 14:36 03/08/19 20:19 Levophed IVPB 250 mls INF [place] Administration Protocol Titrate Amiodarone HCl 450 mg/ 259 mls @ 0 mls/hr 03/08/19 22:00 03/08/19 22:17 Miscellaneous Medication 1 IVPB 259 mls each/ Dextrose/Water INF [place] Administration Protocol As Directed Magnesium Sulfate 2 gm/ Device 50 mls @ 50 mls/hr 03/08/19 22:00 03/08/19 22: 18 IVPB 03/08/19 23:59 50 mls NOW [place] Administration Lorazepam 2 mg 03/07/19 17:10 03/08/19 16:39 Ativan SLOW IVP 04/06/19 17:10 2 mg Q1H PRN Administration Breakthrough agitation Pantoprazole Sodium 40 mg 03/08/19 09:00 03/08/19 08:24 Protonix IVP 40 mg DAILY [place] Administration - Exam General Appearance: NAD, awake alert Heart: RRR, no murmur, no gallops, no rubs, normal peripheral pulses Respiratory: CTAB, no wheezes, no rales, no ronchi, normal chest expansion, no tachypnea, normal percussion Gastrointestinal: soft Gastrointestinal - other findings: Slight distention. Bowel sounds absent. Musculoskeletal: normal tone, normal strength, no muscle wasting Psychiatric: normal affect, normal behavior, A&O x 3 Hosp A/P (1) Septic shock Code(s): A41.9 - SEPSIS, UNSPECIFIED ORGANISM; R65.21 - SEVERE SEPSIS WITH SEPTIC SHOCK Status: Acute (2) Cholestasis Code(s): K83.1 - OBSTRUCTION OF BILE DUCT Status: Acute (3) Pancreatitis Code(s): K85.90 - ACUTE PANCREATITIS WITHOUT NECROSIS OR INFECTION, UNSP Status: Acute (4) Acute renal failure Status: Acute - Plan Continuing broad spectrum abx. E. coli bacteremia likely from GI source. Continuing on pressors and vent support. Long discussions with the patient's family. They have decided to make him DNR today. Will continue other supportive measures and see how his kidneys respond.
[2019-03-09] MEDS: Norepinephrine 8 MG/0.9% NS 250 ML IVPB SCH ×2 (01:05→06:54)
[2019-03-09] MEDS: Albumin 25% 25 GM/100 ML BOT IVPB SCH ×3 (02:58→15:52)
[2019-03-09 05:29] LABS: ALT (SGPT) 248 U/L (8-55); AST (SGOT) 233 U/L (5-34); Albumin 3.7 g/dL (3.4-4.8); Alkaline Phosphatase 92 U/L (40-110); Anion Gap 21 mmol/L (10-20); BUN (Urea Nitrogen) 51 mg/dL (8.4-25.7); Bilirubin, Total 4.2 mg/dL (0.2-1.2); Calc. Creatinine Clearance 14 mL/min (70-130); Calcium 6.3 mg/dL (7.8-10.44); Carbon Dioxide 19 mmol/L (23-31); Chloride 101 mmol/L (98-107); Estimated GFR-MDRD 13; Globulin 1.6 g/dL (2.4-3.5); Glucose 184 mg/dL (83-110); Magnesium 2.3 mg/dL (1.6-2.6); Potassium 3.6 mmol/L (3.5-5.1); Protein, Total 5.3 g/dL (5.8-8.1); Sodium 137 mmol/L (136-145)
[2019-03-09 05:30] LABS: Lipase 44 U/L (8-78); Phosphorus 4.2 mg/dL (2.3-4.7)
[2019-03-09 05:44] LABS: Band 27 % (5-11); Hemoglobin 9.9 g/dL (14.0-18.0); Hypochromia SLIGHT = 6-15 cells (100X) (0-5/hpf); Lymphocytes 3 % (21-51); MDiff Complete? YES; Mean Corpuscular HGB CONC 33.4 g/dL (32.0-36.0); Mean Corpuscular Hemoglobin 31.2 pg (27.0-31.0); Mean Corpuscular Volume 93.3 fL (78.0-98.0); Mean Platelet Volume 12.3 fL (7.4-10.4); Metamyelocyte 4 % (0-0); Monocytes 12 % (0-10); Neutrophil 54 % (42-75); Platelet Count 31 thou/uL (130-400); Platelet Morphology Comment Appears Decreased; RBC Distribution Width 12.4 % (11.5-14.5); Red Blood Cell (RBC) Count 3.17 mill/uL (4.70-6.10); White Blood Cell (WBC) Count 22.4 thou/uL (4.8-10.8)
[2019-03-09] MEDS: Amiodarone 450 MG, Admixture Fee 1 EACH in Dextrose 5% in Water 250 ML IVPB SCH (05:44)
[2019-03-09] MEDS: Sodium Bicarbonate 140 MEQ in Dextrose 5% in Water 1,000 ML IV SCH (05:44)
[2019-03-09] MEDS: Hydrocortisone Sod Succ/PF 100 mg/2 ml Vial IVP SCH (05:45)
[2019-03-09] MEDS: metroNIDAZOLE 500 MG in Premix Bag 1 BAG IVPB SCH ×2 (05:45→11:14)
[2019-03-09 06:49] LABS: Actual Bicarbonate (HCO3a) 17.7 mEq/L (22-28); Base Excess (BEa) -6.3 mEq/L (-2.0 to +3.0); CO2 Tension 29.9 mmHg (35.0-45.0); Calcium, Ionized 0.85 mmol/L (1.12-1.30); Carboxyhemoglobin (COHb) 0.6 gm% (0.0-3.0); Hemoglobin (Hb) 10.1 g/dL (14.0-18.0); O2 Tension (PaO2) 69.5 mmHg (> 60.0); Potassium - ABG Lab 3.47 mmol/L (3.70-5.30); pH, Arterial 7.39 (7.35-7.45)
[2019-03-09 06:53] LABS: ALV-art Gradient 249.625 (0-20); Puncture Site ALINE
[2019-03-09] MEDS ORDERED: Amiodarone 450 MG in Dextrose 5% in Water 250 ML IVPB SCH (08:00)
[2019-03-09] MEDS ORDERED: Hydrocortisone Sod Succ/PF 100 mg/2 ml Vial IVP SCH (08:20)
[2019-03-09] MEDS ORDERED: Sodium Bicarbonate 140 MEQ in Dextrose 5% in Water 1,000 ML IV SCH (08:20)
--- NOTE | 2019-03-09 08:52 | PRG ---
DATE OF SERVICE: 03/09/2019 35 minutes critical care time. SUBJECTIVE: The patient remains intubated, on mechanical ventilation. There have been no acute changes overnight. OBJECTIVE: VITAL SIGNS: Temperature is 100.4, pulse 85, blood pressure 114/62, O2 saturations 98%. Intake 24 hours 5352, output 25. He is currently on amiodarone, norepinephrine, and vasopressin drips. Rates of the vasopressin and norepinephrine have not changed from yesterday. His continuous cardiac output monitoring has been stopped, so I do not have numbers on that. GENERAL: He is intubated and lightly sedated, but not following commands. HEENT: Unremarkable. NECK: No adenopathy or JVD. LUNGS: Diminished breath sounds bilaterally. CARDIAC: S1 and S2. Regular. ABDOMEN: Soft and nontender to deep palpation. EXTREMITIES: Edematous. LABORATORY DATA: White blood cell count 22.4, hemoglobin 9.9, hematocrit 29.6, and platelet count 31. PH of 7.39, PCO2 is 29, PO2 is 69 on SIMV rate 20, tidal volume of 500, PEEP 5, pressure support 10, FiO2 of 50%. Sodium 137, potassium 3.6, chloride 101, CO2 of 19, BUN 51, creatinine 4.4, glucose 184, AST 233, ALT 248, total bilirubin 4.2. His cultures are growing out presumptive E coli with sensitivities that are pending. ASSESSMENT: 1. Septic shock secondary to probable ascending cholangitis. 2. Acute respiratory failure requiring mechanical ventilation. 3. Acute oliguric renal failure. 4. Thrombocytopenia. 5. Transaminitis. PLAN: 1. I am going to slow down his IV fluids as he is becoming rapidly fluid overloaded. I really think in order to improve, he would probably need renal replacement therapy because we have no way to get the fluid off otherwise. 2. We are continuing antibiotics. Since no Gram positives have grown out, I will go ahead and stop the vancomycin. 3. I have decreased the hydrocortisone dose. Job ID: [id number]
[2019-03-09] MEDS ORDERED: Furosemide 100 MG/10 ML VIAL SLOW IVP SCH (09:00)
[2019-03-09] MEDS: Pantoprazole 40 MG VIAL IVP SCH (09:10)
--- NOTE | 2019-03-09 09:19 | PRG ---
DATE OF SERVICE: 03/09/2019 SUBJECTIVE: Mr. Jackson is an 88-year-old white male, who was seen by the Renal Service for his acute kidney injury on top of his chronic renal failure. Renal function continues to worsen. The patient remains on the aneuric/oliguric side. Renal function remains unimproved in spite of albumin infusion. The patient may have underlying pancreatitis. There is ischemic bowel. Renal function today has worsened compared to yesterday. OBJECTIVE: VITAL SIGNS: Blood pressure is 121/66, heart rate 85, respiratory rate 28, temperature is 100.4. GENERAL: The patient is sedated, intubated, on ventilator support. SKIN: Adequate turgor. HEENT: He has a slightly pale conjunctivae. Anicteric sclerae. NECK: No neck mass. No carotid bruits. No JVD. CHEST: No deformities. LUNGS: Clear breath sounds. HEART: Normal sinus rhythm. No murmur. No gallops. No rubs. ABDOMEN: Globular, soft, nontender, no masses. EXTREMITIES: Trace edema. No deformities. LABORATORY DATA: Laboratories of March 09, 2019, white count 22.4, hemoglobin 9.9. Sodium 137, potassium 3.6, chloride 101, carbon dioxide 19, BUN is 51, creatinine 4.44. GFR 13 mL/minute. Calcium 6.3. AST 233, ALT 248. Lipase is down from 341 to 44. ASSESSMENT AND PLAN: 1. Acute kidney injury-initially felt this was hemodynamically-mediated renal dysfunction due to his hemodynamic instability. However, renal function continues to worsen. No improvement in spite of crystalloid and colloid infusion. My suspicion is that he may have developed acute tubular necrosis. Due to the severely marked decreased urine output, we will give Lasix 80 mg IV daily if we will time the dialysis. GFR has now dropped down to 13 mL/minute. We also discuss the issue of dialysis with the family. My bias is to initiate dialysis once they agree. 2. Acute pancreatitis/sepsis, supportive care. 3. Overall prognosis remains guarded with this patient. Job ID: [id number]
--- NOTE | 2019-03-09 10:00 | RAD ---
PORTABLE CHEST: DATE: 03/09/2019. PROVIDED CLINICAL HISTORY: Pneumonia. FINDINGS: Comparison 03/08/2019. The examination is rotated, limiting assessment. Interval development of righ t basilar pleural and/or parenchymal opacity. The distal aspects of the enteric catheter are not vis ualized but are below the diaphragm. Right IJ central line and endotracheal tube are in similar posi tions. Left lung remains clear. There is no evidence for pneumothorax. IMPRESSION: Interval development of right basilar pleural parenchymal opacity that may reflect pleural fluid with adjacent atelectasis or infiltrate. POS: TPC
--- NOTE | 2019-03-09 10:24 | PDOC.HOSPP ---
- Subjective non-verbal Subjective: Spoke with nurse. BP very low with momentary cessation of pressor. - Objective Vital Signs & Weight: Vital Signs (12 hours) Temp Pulse Resp BP Pulse Ox 03/09/19 10:00 28 H 03/09/19 08:00 28 H 96 03/09/19 07:00 100.2 F H 03/09/19 06:32 83 112/61 03/09/19 06:29 84 28 H 91 L 03/09/19 06:00 28 H 03/09/19 04:00 28 H 03/09/19 02:38 93 03/09/19 02:00 28 H 03/09/19 00:26 117 H 28 H 93 L 03/09/19 00:00 28 H 03/08/19 23:05 113 H Weight Admit Weight 186 lb Weight 187 lb 13.341 oz Most Recent Monitor Data Heart Rate from ECG 82 NIBP 128/67 NIBP BP-Mean 87 Respiration from ECG 28 SpO2 96 I&O: 03/08/19 03/09/19 03/10/19 06:59 06:59 06:59 Intake Total 3247.5 5352.1 Output Total 328 25 0 Balance 2919.5 5327.1 0 Result Diagrams: 03/09/19 04:50 03/09/19 04:50 Hospitalist ROS - Medication Medications: Active Medications Generic Name Dose Route Start Last Admin Trade Name Freq PRN Reason Stop Dose Admin Albumin Human 25 gm 03/08/19 21:00 03/09/19 02:58 Albumin 25% IVPB 03/09/19 15:01 25 gm Q6H [place] Administration Albuterol/Ipratropium 3 ml 03/07/19 19:00 03/09/19 06:29 Duoneb NEB 3 ml [id number] [place] Administration Furosemide 80 mg 03/09/19 09:00 03/09/19 09:53 Lasix SLOW IVP 80 mg DAILY [place] Administration Vasopressin 40 unit/ 102 mls @ 0 mls/hr 03/07/19 16:00 03/08/19 22:17 Miscellaneous Medication 1 IV 102 mls each/ Sodium Chloride INF [place] Administration Protocol As Directed Metronidazole 500 mg/ Device 100 mls @ 100 mls/hr 03/07/19 18:00 03/09/19 05: 45 IVPB 100 mls Q6HR [place] Administration Ascorbic Acid 1,500 mg/ Sodium 53 mls @ 100 mls/hr 03/07/19 18:00 03/09/19 05 :45 Chloride IVPB 03/11/19 18:01 53 mls Q6HR [place] Administration Thiamine HCl 200 mg/ Sodium 52 mls @ 100 mls/hr 03/07/19 21:00 03/09/19 09:07 Chloride IVPB 03/11/19 21:01 52 mls Q12HR [place] Administration Fentanyl Citrate 2,000 mcg/ 100 mls @ 0 mls/hr 03/07/19 17:10 03/08/19 12:34 Sodium Chloride IV 04/06/19 17:10 100 mls INF [place] Administration Protocol Per Protocol Cefepime HCl 2 gm/ Sodium 100 mls @ 200 mls/hr 03/08/19 21:00 03/08/19 20:19 Chloride IVPB 100 mls 2100 [place] Administration Norepinephrine Bitartrate 250 mls @ 0 mls/hr 03/08/19 14:36 03/09/19 06:54 Levophed IVPB 250 mls INF [place] Administration Protocol Titrate Sodium Bicarbonate 140 meq/ 1,140 mls @ 75 mls/hr 03/09/19 08:20 03/09/19 09: 33 Dextrose/Water IV 1,140 mls .[id number] [place] Administration Lorazepam 2 mg 03/07/19 17:10 03/08/19 16:39 Ativan SLOW IVP 04/06/19 17:10 2 mg Q1H PRN Administration Breakthrough agitation Pantoprazole Sodium 40 mg 03/08/19 09:00 03/09/19 09:10 Protonix IVP 40 mg DAILY [place] Administration - Exam General - other findings: Intubated, sedated. Heart: RRR, no murmur, no gallops, no rubs, normal peripheral pulses Respiratory: CTAB, no wheezes, no rales, no ronchi, normal chest expansion, no tachypnea, normal percussion Gastrointestinal: soft, non-distended, no rigidity, diminished bowl sounds Skin: normal turgor, no lesions, no rashes Skin - other findings: Mottling Psychiatric - other findings: sedated Hosp A/P (1) Septic shock Code(s): A41.9 - SEPSIS, UNSPECIFIED ORGANISM; R65.21 - SEVERE SEPSIS WITH SEPTIC SHOCK Status: Acute (2) Cholestasis Code(s): K83.1 - OBSTRUCTION OF BILE DUCT Status: Acute (3) Pancreatitis Code(s): K85.90 - ACUTE PANCREATITIS WITHOUT NECROSIS OR INFECTION, UNSP Status: Acute (4) Acute renal failure Status: Acute (5) Anuria Code(s): R34 - ANURIA AND OLIGURIA Status: Acute - Plan Continuing broad spectrum abx. E. coli bacteremia likely from GI source. Continuing on pressors and vent support. Long discussions with the patient's family. They have decided to make him DNR. Renal function continues to decline. Dialysis would be required, but sounds like the family is clear that dialysis is not an option.
[2019-03-09] MEDS: Lorazepam 2 MG/ML VIAL SLOW IVP PRN ×3 (10:46→15:25)
[2019-03-09 11:11] VITALS: BP 115/60
[2019-03-09 11:35] LABS: Vancomycin, Random 17.1 ug/mL (See Comment)
--- NOTE | 2019-03-09 14:48 | CON ---
DATE OF CONSULTATION: PRIMARY CHANNEL EXECUTIVE: Fern Lopez MD PRIMARY CLOTH FOLDER MACHINE: Vaibhav Roper MD PRIMARY GI DOCTOR: Jessica Eldridge MD PRIMARY AIRCRAFT INSTRUMENT REPAIRER: Douglas Puga MD REASON FOR CARDIOLOGY CONSULT: New onset atrial fibrillation with rapid ventricular response. HISTORY OF PRESENT ILLNESS: Mr. Jackson is an 88-year-old male with significant history of diverticulitis, sigmoid diverticulosis, chronic kidney disease, GERD, duodenal ulcer, hypertension, and goiter. The patient presented to the Emergency Department for acute hypoxemic respiratory failure. The patient was intubated on same-day on March 07, 2019. Around a 1400 on March 08, 2019, the patient convert to the atrial fibrillation with heart rate of 120s to 140s. The patient's amiodarone drip was started around 10:30 last night. The patient converted back to normal rhythm around 115 today around March 09, 2019. He has been on the amiodarone drip. At this moment, the patient is intubated. The patient informations were obtained from the patient's medical record. According to the patient's medical record, he has not seen any epic kaleidoscope analyst in the past. He has a history of hypertension. He has not had echocardiogram or stress test at [place] or any epic kaleidoscope analyst in the [facility]. He has a significant medical history of duodenal ulcer and cholangitis, and chronic kidney disease. PAST MEDICAL HISTORY: GERD, duodenal ulcer, hypertension, history of toxic multinodular goiter, and chronic kidney disease. PAST SURGICAL HISTORY: Cataract and colonoscopy. FAMILY HISTORY: Noncontributory. SOCIAL HISTORY: He is . He is living with his . He has a history of smoking, but no recent. No evidence of alcohol or drug abuse. At this moment, the patient DNAR. The patient's is a surrogate decision maker. ALLERGIES: NO KNOWN DRUG ALLERGIES. CURRENT MEDICATIONS: 1. Prilosec 40 mg once a day. 2. Tylenol No. 3 every 6 hours as needed. 3. Amlodipine 5 mg 1 tablet once a day. Losartan 50 mg 1 tablet once a day. REVIEW OF SYSTEMS: Noncontributory due to the intubation. PHYSICAL EXAMINATION: VITAL SIGNS: Blood pressure is 95/53, heart rate 82 and sinus rhythm, O2 saturation 93% on intubation, and temperature 100.2. GENERAL: The patient is under vent sedation. Not in acute distress at this moment. HEENT: Head is normocephalic and atraumatic. Eyes, extraocular muscle movement intact. ENT and mouth, he has intubation at this moment, but no rash or lesion noted. RESPIRATORY: Very diminished at the bases. No wheezing, rales, or rhonchi noted. CARDIOVASCULAR: Regular rate and rhythm. Normal S1 and S2. There is no S3 or S4. No significant murmur, hives, or thrill noted. Really cyanotic in the bilateral toes, really cold to touch. Diminished pulses in bilateral upper and lower extremities. ABDOMEN: Bowel sounds are present and very diminished. MUSCULOSKELETAL: The patient is under sedation at this moment. IMAGING DATA: Chest x-ray today shows right bibasilar pleural parenchymal opacity that may reflect pleural fluid with adjacent atelectasis or infiltrate. LABORATORY DATA: WBC 22.4, hemoglobin 9.9, hematocrit 29.6, and platelet 31. Sodium 137, potassium 3.6, BUN 51, creatinine 4.44, glucose 184, calcium 6.3, magnesium 2.3, AST 233, ALT 248, and lipase 44. The patient is positive for E. coli in the blood culture. ASSESSMENT AND PLAN: 1. Atrial fibrillation with rapid ventricular response. The patient converted back to sinus rhythm around 1:15 today. He is on amiodarone 0.5 mg 5 minutes at this moment. He is not on any anticoagulants or antiplatelet at this moment due to the platelet is 31 today. 2. Septic shock, which is managed by primary care doctor and supervisor looping. 3. Acute on hypoxic respiratory failure. He is on the vent machine by support at this moment, which is managed by primary care doctor and supervisor looping. 4. Possible cholangitis, which is managed by the primary care doctor, and GI Service and pancreatitis, which is managed by GI. 5. Acute renal failure on chronic kidney disease, which is managed by ict teacher. Thank you very much for Cardiology Service to participate in the care of this patient. We will follow along the patient's care team and make further recommendations as appropriate. Job ID: [id number]
[2019-03-09] MEDS ORDERED: Morphine 2 MG/ML SYRINGE SLOW IVP PRN (15:46)
--- NOTE | 2019-03-09 15:57 | PDOC.EVN ---
Event Note - Event Note Event Note: Discussed with the patient's , daughter and son. They are ready to withdraw care and terminally, compassionately extubate him. Discussed with Dr. Roper. Orders entered for comfort meds and extubation. All other meds DC'd.
[2019-03-09] MEDS ORDERED: Lorazepam 2 MG/ML VIAL SLOW IVP SCH (16:00)
[2019-03-09] MEDS ORDERED: Morphine 4 MG/ML VIAL SLOW IVP SCH (16:00)
[2019-03-09 16:29] VITALS: TEMP 100.2
== END 2019-03-09 17:57 | disposition expired | DRG 871 ==
LOC: ERS 09:59 → CCU 12:16
PROVIDERS: ADMIT Internal Medicine; ATTEND Internal Medicine
PROC: 03HY32Z Insertion of Monitoring Device into Upper Artery, Percutaneous Approach (ICD-10-PCS; principal; 2019-03-07)
PROC: 5A1945Z Respiratory Ventilation, 24-96 Consecutive Hours (ICD-10-PCS; 2019-03-07)
PROC: 0BH17EZ Insertion of Endotracheal Airway into Trachea, Via Natural or Artificial Opening (ICD-10-PCS; 2019-03-07)
PROC: 3E033XZ Introduction of Vasopressor into Peripheral Vein, Percutaneous Approach (ICD-10-PCS; 2019-03-09)
DX: A41.51 Sepsis due to Escherichia coli [E. coli] (principal); J96.01 Acute respiratory failure with hypoxia; R65.21 Severe sepsis with septic shock; I21.A1 Myocardial infarction type 2; R40.2222 Coma scale, best verbal response, incomprehensible words, at arrival to emergency department; R40.2342 Coma scale, best motor response, flexion withdrawal, at arrival to emergency department; K85.90 Acute pancreatitis without necrosis or infection, unspecified; K83.1 Obstruction of bile duct; N17.9 Acute kidney failure, unspecified; E87.2 Acidosis; K83.09 Other cholangitis; K21.9 Gastro-esophageal reflux disease without esophagitis; Z98.49 Cataract extraction status, unspecified eye; Z79.899 Other long term (current) drug therapy; E87.6 Hypokalemia; R40.2132 Coma scale, eyes open, to sound, at arrival to emergency department; I12.9 Hypertensive chronic kidney disease with stage 1 through stage 4 chronic kidney disease, or unspecified chronic kidney disease; N18.9 Chronic kidney disease, unspecified; D69.6 Thrombocytopenia, unspecified; I48.91 Unspecified atrial fibrillation; Z66 Do not resuscitate
CPT/HCPCS: 36415; 36556; 51702; 70450; 71045; 74176; 76705; 80053; 80202; 81003; 81015; 82553; 82570; 82805; 83605; 83690; 83735; 84100; 84300; 84484; 85025; 86850; 86900; 86901; 87040; 87077; 87086; 87149; 87186; 87804; 93005; 93010; 94002; 94003; 94640; 96361; 96365; 96367; 96374; 96375; 96376; 99292; C9113; J0282; J0692; J0696; J1160; J1720; J1940; J2060; J2250; J2270; J3010; J3370; J3411; J3475; J3480; J3490; J7070; J7620; P9047